=== PATIENT | female | born 1955 | race Caucasian/White ===

== ENCOUNTER → 2024-06-10 | Outpatient (REF) | payer MEDICARE, BC ==
[~2024-06-10] MED LIST: FENTANYL CITRATE/PF 100MCG/2 ML INJ ONE; HEPARIN SOD (PORCINE) 1000 UNIT/ML SDV ONE; LIDOCAINE 2% /EPINEPHRINE 20 ML SDV INJ ONE; LIDOCAINE HCL 1% 2 ML AMP ONE; LIDOCAINE HCL 1% 30ML-PF VIAL ONE; MIDAZOLAM HCL 2 MG/2 ML VIAL ONE; SODIUM CHLORIDE 0.9% 250ML 250 ML ONE
[2024-06-10 09:57] LABS: BASOPHILS % 0.7 % (0.0-1.0); EOSINOPHILS # (AUTO) 0.1 (0.0-0.4); EOSINOPHILS % 1.9 % (0.0-6.0); HEMOGLOBIN 13.1 g/dL (12.0-16.0); LYMPHOCYTES # (AUTO) 1.4 (1.0-3.2); LYMPHOCYTES % 31.9 % (18.0-39.1); MEAN CORPUSCULAR HEMOGLOBIN 29.6 pg (28-32); MEAN CORPUSCULAR HGB CONC 33.6 g/dL (31-35); MEAN CORPUSCULAR VOLUME 88.2 fL (81-99); MONOCYTES # (AUTO) 0.4 (0.2-0.8); MONOCYTES % 8.2 % (4.4-11.3); NEUTROPHILS # (AUTO) 2.5 (2.1-6.9); NEUTROPHILS % 57.1 % (38.7-80.0); PLATELET COUNT 261 x10e3/uL (140-360); RED BLOOD COUNT 4.42 x10e6/uL (3.6-5.1); RED CELL DISTRIBUTION WIDTH 14.5 % (11.7-14.4); WHITE BLOOD COUNT 4.29 x10e3/uL (4.8-10.8)
[2024-06-10 12:13] LABS: INR 0.91; PROTHROMBIN TIME 10.1 seconds (11.9-14.5)
[2024-06-10 12:17] LABS: PARTIAL THROMBOPLASTIN TIME 21.9 seconds (23.8-35.5)
== END ==
LOC: DX 09:05
PROVIDERS: ATTEND Allergy & Immunology
DX: Z45.2 Encounter for adjustment and management of vascular access device (principal); D80.9 Immunodeficiency with predominantly antibody defects, unspecified
CPT/HCPCS: 36415; 36561; 76937; 77001; 85025; 85610; 85730; J1644; J2003; J2004; J2250; J3010; J7050; 99152; 99153